=== PATIENT | female | born 1970 | race Two or more races ===

== ENCOUNTER 2022-05-14 09:25 | Emergency (ER) | payer MEDICAID ==
[~2022-05-14] VITALS: Ht 160 cm; Wt 65.8 kg
[~2022-05-14 09:25] MED LIST: NO HOME MEDS
--- NOTE | 2022-05-14 09:37 | NUR ---
TO ER BED 3, C/O ABDOMINAL PAIN X 2 MONTHS C/O ANXIETY, AAOX3, BREATHING EVEN AND NON LABORED, CONNECTED TO MONITOR, AWAITING MD ORDERS
--- NOTE | 2022-05-14 09:44 | NUR ---
URINE COLLECTED AND SENT TO LAB
[2022-05-14] MEDS ORDERED: ONDANSETRON HCL/PF 4 MG/2 ML VIAL ONE (09:56)
[2022-05-14] MEDS ORDERED: FAMOTIDINE/PF INJ 20 MG/2 ML VIAL IV ONE ×2 (09:56→10:00)
[2022-05-14] MEDS ORDERED: MORPHINE SULFATE INJ 4 MG/ML DISP.SYRIN ONE (09:56)
[2022-05-14] MEDS ORDERED: MORPHINE SULFATE INJ 2 MG/ML DISP.SYRIN IV ONE (10:00)
[2022-05-14] MEDS ORDERED: ONDANSETRON HCL/PF 4 MG/2 ML VIAL IVP ONE (10:00)
[2022-05-14] MEDS ORDERED: IV NS 0.9% 1,000 ML BAG IV ONE (10:00)
--- NOTE | 2022-05-14 10:03 | NUR ---
TAKEN TO CT VIA SCAR
[2022-05-14 10:31] LABS: BASOPHILS % (AUTO) 0.3 % (0.0-2.0); EOSINOPHILS % (AUTO) 0.4 % (0.0-6.0); HEMATOCRIT 43 % (33-45); HEMOGLOBIN 14.6 g/dL (11.5-14.8); LYMPHOCYTES # (AUTO) 0.7 K/uL (0.8-4.8); LYMPHOCYTES % (AUTO) 9.5 % (20.0-44.0); MEAN CORPUSCULAR HGB CONC 34 g/dl (31.0-36.0); MEAN CORPUSCULAR VOLUME 85 fL (82-100); MONOCYTES # (AUTO) 0.5 K/uL (0.1-1.30); MONOCYTES % (AUTO) 7.7 % (2.0-12.0); NEUTROPHILS # (AUTO) 5.6 K/uL (1.8-8.9); NEUTROPHILS % (AUTO) 82.1 % (43.0-81.0); PLATELET COUNT (AUTO) 329 K/uL (150-450); RED BLOOD CELL COUNT(AUTO) 5.09 MIL/uL (4.0-5.2); WHITE BLOOD COUNT (AUTO) 6.8 K/uL (4.3-11.0)
[2022-05-14 10:54] LABS: CALCIUM, SERUM 9.8 mg/dL (8.5-10.1); CREATININE 0.8 mg/dL (0.6-1.3); POTASSIUM 3.7 mmol/L (3.5-5.1)
[2022-05-14 10:59] LABS: ALBUMIN 4.1 g/dL (3.4-5.0); BILIRUBIN,DIRECT 0.2 mg/dL (0.0-0.2); BILIRUBIN,TOTAL 0.5 mg/dL (0.2-1.0); TOTAL PROTEIN, SERUM 8.1 g/dL (6.4-8.2)
[2022-05-14 11:57] LABS: BILIRUBIN,URINE 1+ (NEGATIVE); COLOR,URINE YELLOW (YELLOW); LEUKOCYTE ESTERASE ,URINE 2+ (NEGATIVE); NITRITE, URINE NEGATIVE (NEGATIVE); PROTEIN,URINE NEGATIVE (NEGATIVE); UGLUCOSE NEGATIVE (NEGATIVE)
[2022-05-14 12:53] LABS: BACTERIA,URINE Few /HPF (None Seen); RBC,URINE NONE SEEN /HPF (0-2)
[2022-05-14 12:54] LABS: SQUAMOUS EPITHELIAL CELL,UR Few /HPF (None Seen)
[2022-05-14] MEDS ORDERED: ONDA4TAB5 PO (12:59)
[2022-05-14] MEDS ORDERED: NITR100C PO (12:59)
[2022-05-14] MEDS ORDERED: FAMO20TA8 PO (12:59)
--- NOTE | 2022-05-14 13:20 | NUR ---
IV removed. Catheter intact and site benign. Pressure and 4x4 applied to site. No bleeding noted. Patient discharged to home in stable condition. Written and verbal after care instructions given. Patient verbalizes understanding of instruction.
[2022-05-14 13:21] VITALS: BP 130/88
== END 2022-05-14 13:21 | disposition home or self-care (01) ==
LOC: ER 09:27
DX: N39.0 Urinary tract infection, site not specified (principal); R10.13 Epigastric pain; Z79.899 Other long term (current) drug therapy
CPT/HCPCS: 99284; 74176; 96374; 96375; 96361; 85025; 80048; 87086; 83690; 80076; 81001; 36415; J2270; J3490; J2405; J7030

== ENCOUNTER 2022-07-28 17:49 | Inpatient (IN) | payer MEDICAID ==
[~2022-07-28] VITALS: Ht 160 cm; Wt 62.1 kg
[~2022-07-28 17:49] MED LIST changes: +FAMO20TA8 PO; +NITR100C PO; +ONDA4TAB5 PO
--- NOTE | 2022-07-28 18:11 | NUR ---
DR CARMONA AT BEDSIDE
[2022-07-28] MEDS ORDERED: MORPHINE SULFATE INJ 2 MG/ML DISP.SYRIN ONE (18:20)
[2022-07-28] MEDS ORDERED: MORPHINE SULFATE INJ 2 MG/ML DISP.SYRIN IV ONE (18:30)
[2022-07-28] MEDS ORDERED: IV NS 0.9% 1,000 ML BAG IV ONE (18:30)
--- NOTE | 2022-07-28 18:46 | NUR ---
SHOWER MAID AT BEDSIDE
--- NOTE | 2022-07-28 18:48 | NUR ---
WHEELED OUT VIA RNEY FOR CT SCAN
[2022-07-28 18:59] LABS: CALCIUM, SERUM 9.6 mg/dL (8.5-10.1); CARBON DIOXIDE 31 mmol/L (21-32); CHLORIDE 104 mmol/L (98-107); CREATININE 0.8 mg/dL (0.6-1.3); GLUCOSE 119 mg/dL (74-106); POTASSIUM 3.2 mmol/L (3.5-5.1); SODIUM SERUM 141 mmol/L (136-145); UREA NITROGEN, BLOOD 13 mg/dL (7-18)
[2022-07-28 19:08] LABS: ALANINE AMINOTRANSFERASE 75 U/L (12-78); ALKALINE PHOSPHATASE 133 U/L (46-116); ASPARTATE AMINOTRANSFERASE 107 U/L (15-37); BILIRUBIN,DIRECT 0.2 mg/dL (0.0-0.2); BILIRUBIN,TOTAL 0.3 mg/dL (0.2-1.0); TOTAL PROTEIN, SERUM 7.9 g/dL (6.4-8.2)
[2022-07-28 19:12] LABS: LIPASE 2255 U/L (73-393)
[2022-07-28] MEDS ORDERED: POTASSIUM CL. PREMIX PERIPHER. 50 ML IV SCH (19:30)
--- NOTE | 2022-07-28 19:33 | NUR ---
endorsement given to Maria Teresa HAYDEN for MEGAN
[2022-07-28 19:55] LABS: BASOPHILS % (AUTO) 0.3 % (0.0-2.0); EOSINOPHILS % (AUTO) 0.9 % (0.0-6.0); HEMATOCRIT 43 % (33-45); HEMOGLOBIN 14.1 g/dL (11.5-14.8); LYMPHOCYTES # (AUTO) 2.5 K/uL (0.8-4.8); LYMPHOCYTES % (AUTO) 30.3 % (20.0-44.0); MEAN CORPUSCULAR HGB CONC 33 g/dl (31.0-36.0); MEAN CORPUSCULAR VOLUME 87 fL (82-100); MONOCYTES # (AUTO) 0.5 K/uL (0.1-1.30); MONOCYTES % (AUTO) 6.5 % (2.0-12.0); NEUTROPHILS # (AUTO) 5.2 K/uL (1.8-8.9); PLATELET COUNT (AUTO) 350 K/uL (150-450); RED BLOOD CELL COUNT(AUTO) 4.91 MIL/uL (4.0-5.2); WHITE BLOOD COUNT (AUTO) 8.3 K/uL (4.3-11.0)
--- NOTE | 2022-07-28 20:03 | NUR ---
URINE SPECIMEN SENT TO LAB
--- NOTE | 2022-07-28 20:03 | NUR ---
COVID SWAB DONE AND SENT TO LAB
--- NOTE | 2022-07-28 20:50 | NUR ---
RECEIVED THIS PATIENT AAOX4. ABLE TO MAKE NEEDS KNOW. CAME EARLIER WITHCC OF LUQ ABDL PAIN. NO PAIN UPON ASSESSMENT. PATIENT HAS IV DAVID ON LEFT AC G18. ATTACHED TO MONITOR. VITALS CHECKED.
[2022-07-28] MEDS ORDERED: ONDANSETRON HCL/PF 4 MG/2 ML VIAL IVP PRN (21:30)
[2022-07-28] MEDS ORDERED: ACETAMINOPHEN 325 MG TABLET PO PRN (21:30)
[2022-07-28] MEDS ORDERED: MAG HYDROX/AL HYDROX/SIMETH 30 ML UDC PO PRN (21:30)
[2022-07-28] MEDS ORDERED: MAGNESIUM HYDROXIDE 30 ML UDC PO PRN (21:30)
[2022-07-28] MEDS ORDERED: TEMAZEPAM 15 MG CAPSULE PO PRN (21:30)
[2022-07-28] MEDS ORDERED: Z GUARD REMEDY 4 OZ OINT TP PRN (21:30)
--- NOTE | 2022-07-28 22:00 | NUR ---
REPORT JACKELYN SEQUEIRA MEGAN
--- NOTE | 2022-07-28 22:43 | NUR ---
PT BEING TRANSPORTED TO UNIT ON [facility] WITH EMT AT BEDSIDE. PT IS IN STABLE CONDITION FOR TRANSPORT.
[2022-07-28 22:50] VITALS: BP 145/72
[2022-07-28] MEDS: ENOXAPARIN SODIUM 40 MG/0.4 ML DISP.SYRIN SQ SCH (23:00)
--- NOTE | 2022-07-28 23:10 | NUR ---
MS RN ADMITTING NOTE PATIENT [facility]SF[facility] AT 2250[facility], PATIENT IS ALERT AND ORIENTED X 4, GEORGIAN SPEAKING BUT CAN UNDERSTAND LITTLE DOMINICAN; VITAL SIGNS TAKEN FOLLOWS 145/73, HR 89 BPM, RR 18, TEMP 97.7, 98% O2 SAT; ORIENTED TO STAFF AND ROOM; PATIENT'S BELONGINGS ACCOUNTED FOR; WITH IV ACCESS ON LAC G18 RUNNING WITH NORMAL SALINE AND POTASSIUM IV; ENCOURAGED VERBALIZATION OF NEEDS; SAFETY PRECAUTIONS IMPLEMENTED, BED IN LOW POSITION, LOCKED, SIDE RAILS UP X 3, CALL LIGHT WITHIN EASY REACH; WILL CONTINUE TO MONITOR THROUGHOUT SHIFT
[2022-07-29] MEDS: MORPHINE SULFATE INJ 2 MG/ML DISP.SYRIN IV PRN ×3 (00:59→17:07)
--- NOTE | 2022-07-29 01:30 | NUR ---
MS RN NOTE PATIENT COMPLAINED OF ABDOMINAL PAIN WITH A PAIN SCORE OF 8/10, ADMINISTERED MORPHINE IV ORDERED AT 0059H, PATIENT VERBALIZED DECREASE IN PAIN, TOLERATED WELL
[2022-07-29] MEDS: IV NS 0.9% 1,000 ML IV PRN ×2 (03:48→18:29)
[2022-07-29 05:46] LABS: BASOPHILS % (AUTO) 0.1 % (0.0-2.0); EOSINOPHILS % (AUTO) 0.4 % (0.0-6.0); HEMATOCRIT 41 % (33-45); HEMOGLOBIN 13.6 g/dL (11.5-14.8); LYMPHOCYTES # (AUTO) 0.8 K/uL (0.8-4.8); LYMPHOCYTES % (AUTO) 10.1 % (20.0-44.0); MEAN CORPUSCULAR HGB CONC 33 g/dl (31.0-36.0); MEAN CORPUSCULAR VOLUME 88 fL (82-100); MONOCYTES # (AUTO) 0.6 K/uL (0.1-1.30); MONOCYTES % (AUTO) 7.1 % (2.0-12.0); NEUTROPHILS # (AUTO) 6.8 K/uL (1.8-8.9); NEUTROPHILS % (AUTO) 82.3 % (43.0-81.0); PLATELET COUNT (AUTO) 273 K/uL (150-450); RED BLOOD CELL COUNT(AUTO) 4.69 MIL/uL (4.0-5.2); WHITE BLOOD COUNT (AUTO) 8.3 K/uL (4.3-11.0)
[2022-07-29 06:03] LABS: CALCIUM, SERUM 8.7 mg/dL (8.5-10.1); CREATININE 0.7 mg/dL (0.6-1.3); MAGNESIUM 2.1 mg/dL (1.8-2.4); PHOSPHORUS 4.2 mg/dL (2.5-4.9)
--- NOTE | 2022-07-29 06:39 | NUR ---
MS RN CLOSING NOTE PATIENT IS ALERT AND ORIENTED X 4, NEPALI SPEAKING BUT CAN UNDERSTAND LITTLE BRAZILIAN; ON ROOM AIR, BREATHING EVENLY AND TOLERATING WELL, NO RESPIRATORY DISTRESS NOTED; WITH IV ACCESS ON LAC G18 RUNNING WITH NORMAL SALINE AT 125 ML/HR, INFUSING WELL; PATIENT'S NEEDS ATTENDED; ADMINISTERED MEDICATIONS PRESCRIBED; MONITORED ACCORDINGLY; SAFETY PRECAUTIONS IMPLEMENTED, BED IN LOW POSITION, LOCKED, SIDE RAILS UP X 3, CALL LIGHT WITHIN EASY REACH; WILL ENDORSE TO AM NURSE FOR MEGAN.
--- NOTE | 2022-07-29 07:31 | NUR ---
MS RN OPENING NOTE Patient observed to be awake, alert, oriented x 4. Patient states she feels better this morning than yesterday, denying nausea, denying any pain, and showing no signs of distress breathing comfortably on room air. Patient has a patent, intact PIV ,# 18 gauge, infusing NS @ 125mLs/hr to her left arm antecubital space. Saftey protocals in place: bed in lowest positon; bed brakes locked on; bed alarm on; bed siderails up x 2; and call adams/light within patient's reach. Will continue to care for and monitor per hospitalist provider's POC.
[2022-07-29 08:00] VITALS: BP 116/74
[2022-07-29] MEDS ORDERED: OMEP40CA21 PO (08:44)
[2022-07-29] MEDS ORDERED: PANTOPRAZOLE 40 MG VIAL IV SCH (09:00)
[2022-07-29 16:00] VITALS: BP 115/64
--- NOTE | 2022-07-29 19:03 | NUR ---
MS RN CLOSING NOTE Patient resting comfortably in bed while patient's visits her. patient is alert and oriented x 4 with mild inflammatory pain across her abdomen 2/10 after getting morphine 4 mg IV for 7/10 pain earlier at 17:07 hours. Vital signs stable. All scheduled medications given. Patient has intact, patent, # 18 gauge PIV to left AC, infusing well NS @125 mLs/hr. All safety protocals maintained. Will endorse to bench assembler RN for MEGAN.
--- NOTE | 2022-07-29 19:15 | NUR ---
MS RN NOTES RECEIVED ON BED,ON SITTING POSITION,FAMILY MEMBERS AT BEDSIDE,COMMENTED SLIGHT ABDOMINAL PAIN, PRESENT IVF NS AT 125ML/HR RATE INFUSING WELL ON LEFT AC SALINE LOCK VIA IV PUMP,SITE PATENT.NO S/S OF INFILTRATION NOTED.ON CLEAR LIQUIDS,CALL LIGHT IN REACH,NEEDS ANTICIPATED.
[2022-07-29 20:00] VITALS: BP 130/76
[2022-07-29] MEDS: ENOXAPARIN SODIUM 40 MG/0.4 ML DISP.SYRIN SQ SCH (20:14)
[2022-07-30] MEDS: IV NS 0.9% 1,000 ML IV PRN ×2 (02:52→11:29)
[2022-07-30] MEDS: MORPHINE SULFATE INJ 2 MG/ML DISP.SYRIN IV PRN ×3 (03:05→20:33)
--- NOTE | 2022-07-30 03:05 | NUR ---
MS RN NOTES AWAKE.C/O ABDOMINAL PAIN 8/10 ON PAIN SCALE,MORPHINE 4MG IV GIVEN ORDERED.VITAL SIGNS STABLE.
[2022-07-30 06:19] LABS: BASOPHILS % (AUTO) 0.4 % (0.0-2.0); EOSINOPHILS % (AUTO) 1.8 % (0.0-6.0); HEMATOCRIT 38 % (33-45); HEMOGLOBIN 12.7 g/dL (11.5-14.8); LYMPHOCYTES % (AUTO) 18.2 % (20.0-44.0); MEAN CORPUSCULAR HGB CONC 33 g/dl (31.0-36.0); MEAN CORPUSCULAR VOLUME 87 fL (82-100); MONOCYTES # (AUTO) 0.5 K/uL (0.1-1.30); MONOCYTES % (AUTO) 8.6 % (2.0-12.0); NEUTROPHILS # (AUTO) 3.9 K/uL (1.8-8.9); PLATELET COUNT (AUTO) 264 K/uL (150-450); RED BLOOD CELL COUNT(AUTO) 4.38 MIL/uL (4.0-5.2); WHITE BLOOD COUNT (AUTO) 5.4 K/uL (4.3-11.0)
[2022-07-30 06:21] LABS: CALCIUM, SERUM 8.6 mg/dL (8.5-10.1); CREATININE 0.6 mg/dL (0.6-1.3); MAGNESIUM 2.1 mg/dL (1.8-2.4); PHOSPHORUS 3.8 mg/dL (2.5-4.9); POTASSIUM 3.6 mmol/L (3.5-5.1)
--- NOTE | 2022-07-30 07:42 | NUR ---
MS RN OPENING NOTE Patient observed to be awake, alert, oriented x 4. Patient states she feels better this morning than yesterday, denying nausea, denying any pain, and showing no signs of distress breathing comfortably on room air. Patient has a patent, intact PIV ,# 18 gauge, infusing NS @ 125mLs/hr to her left arm antecubital space. Patient up OOB to bathroom with steady gait, no c/o dizziness nor unbearable pain. Lipase level is WNL, no longer abnormally high. Safety protocols in place: bed in lowest position; bed brakes locked on; bed alarm on; bed side rails up x 2; and call adams/light within patient's reach. Will continue to care for and monitor per hospitalist provider's POC.
[2022-07-30 08:00] VITALS: BP 122/75
[2022-07-30] MEDS: PANTOPRAZOLE 40 MG/PACK PACK PO SCH (10:03)
[2022-07-30 16:00] VITALS: BP 130/72
[2022-07-30] MEDS: LORAZEPAM INJ 2 MG/ML VIAL IV PRN (18:42)
--- NOTE | 2022-07-30 18:51 | NUR ---
MS RN CLOSING NOTE Patient uncomfortable with pain in bed c/o severe abdominal pain, but next dose of morphine IV not due for more than another hour. Gave patient ativan 1 mg IV to help calm patient and possibly potentiate the morphine's effectiveness once given later in an hour. Patient did report slight relief, but still in pain. Patient is alert and oriented x 4 with inflammatory pain across her abdomen /. Vital signs stable. All scheduled medications given. Patient has intact, patent, # 18 gauge PIV to left AC, infusing well NS @125 mLs/hr. All safety protocols maintained. Will endorse to servomechanism assembler RN for MEGAN.
--- NOTE | 2022-07-30 19:15 | NUR ---
MS RN OPENING NOTE RECEIVED PT IN BED, AWAKE AT THIS TIME. A/O X4, GERMAN SPEAKING WITH SOME KHMER, ABLE TO MAKE NEEDS KNOWN. ON RA WITH NO SOB OR S/S OF ACUTE DISTRESS. C/O ABDOMINAL PAIN AT THIS TIME, WILL ADMINISTER PAIN MED WHEN DUE. IV ACCESS LAC #20G PATENT AND INTACT, FLUSHING WELL, RUNNING 0.9% NS @ 125 ML/HR. SAFETY PRECAUTIONS IN PLACE: BED LOCKED AND IN LOWEST POSITION, SIDE RAILS UP X2, CALL LIGHT AND TRAY TABLE WITHIN REACH. WILL CONTINUE TO MONITOR AND ASSIST.
[2022-07-30 20:00] VITALS: BP_SYST 120; BP_DIAS 61; BP_DIAS 64
[2022-07-30] MEDS: ENOXAPARIN SODIUM 40 MG/0.4 ML DISP.SYRIN SQ SCH (20:35)
[2022-07-31] MEDS: MORPHINE SULFATE INJ 2 MG/ML DISP.SYRIN IV PRN ×3 (05:31→15:55)
[2022-07-31] MEDS: IV NS 0.9% 1,000 ML IV PRN ×2 (05:38→14:11)
[2022-07-31 05:48] LABS: BASOPHILS % (AUTO) 0.4 % (0.0-2.0); EOSINOPHILS % (AUTO) 2.8 % (0.0-6.0); HEMATOCRIT 39 % (33-45); LYMPHOCYTES # (AUTO) 1.2 K/uL (0.8-4.8); LYMPHOCYTES % (AUTO) 21.2 % (20.0-44.0); MEAN CORPUSCULAR HGB CONC 33 g/dl (31.0-36.0); MEAN CORPUSCULAR VOLUME 87 fL (82-100); MONOCYTES # (AUTO) 0.5 K/uL (0.1-1.30); MONOCYTES % (AUTO) 8.4 % (2.0-12.0); NEUTROPHILS # (AUTO) 3.9 K/uL (1.8-8.9); NEUTROPHILS % (AUTO) 67.2 % (43.0-81.0); PLATELET COUNT (AUTO) 263 K/uL (150-450); RED BLOOD CELL COUNT(AUTO) 4.51 MIL/uL (4.0-5.2); WHITE BLOOD COUNT (AUTO) 5.7 K/uL (4.3-11.0)
[2022-07-31 06:06] LABS: CALCIUM, SERUM 8.7 mg/dL (8.5-10.1); CREATININE 0.6 mg/dL (0.6-1.3); PHOSPHORUS 3.5 mg/dL (2.5-4.9); POTASSIUM 3.4 mmol/L (3.5-5.1)
--- NOTE | 2022-07-31 07:15 | NUR ---
MS RN CLOSING NOTE PT IN BED RESTING IN BED AT THIS TIME. A/O X4, SERBIAN SPEAKING WITH SOME MAORI, ABLE TO MAKE NEEDS KNOWN. STABLE ON RA WITH NO SOB OR S/S OF ACUTE DISTRESS. C/O ABDOMINAL PAIN AT THIS TIME, WILL ADMINISTER PAIN MED WHEN DUE. IV ACCESS LAC #20G PATENT AND INTACT, FLUSHING WELL, RUNNING 0.9% NS @ 125 ML/HR. ALL CARE PROVIDED AND MEDS TOLERATED WELL. SAFETY PRECAUTIONS MAINTAINED: BED LOCKED AND IN LOWEST POSITION, SIDE RAILS UP X2, CALL LIGHT AND TRAY TABLE WITHIN REACH. WILL ENDORSE MEGAN TO DAY SHIFT NURSE.
--- NOTE | 2022-07-31 07:16 | NUR ---
MS RN OPENING NOTE RECEIVED PT IN BED RESTING IN BED AT THIS TIME. A/O X4, ABLE TO MAKE NEEDS KNOWN. STABLE ON RA WITH NO SOB OR S/S OF ACUTE DISTRESS. C/O ABDOMINAL DISCOMFORT. WITH IV ACCESS LAC #20G WITH IVF OF NS RUNNING AT 125ML/HR INFUSING WELL. SAFETY PRECAUTIONS MAINTAINED: BED LOCKED AND IN LOWEST POSITION, SIDE RAILS UP X2, CALL LIGHT AND TRAY TABLE WITHIN REACH. WILL CONTINUE WITH PLAN OF CARE.
[2022-07-31 08:53] VITALS: BP 112/53
[2022-07-31] MEDS: PANTOPRAZOLE 40 MG/PACK PACK PO SCH (08:54)
--- NOTE | 2022-07-31 10:30 | NUR ---
MS RN NOTE COMPLAINING OF ABDOMINAL PAIN, PAIN MEDICATION GIVEN INDICATED. COMFORT MEASURES PROVIDED. HEALTH TEACHING DONE REGARDING PAIN MANAGEMENT.
--- NOTE | 2022-07-31 11:18 | NUR ---
MS RN NOTE SEEN BY HOSPITALIST GARO, IN STABLE CONDITION.
[2022-07-31] MEDS: Potassium Chloride 10 MEQ, LIDOCAINE HCL/PF 1% 1 ML in IV NS 0.9% 50 ML IV SCH ×2 (12:08→13:39)
[2022-07-31] MEDS: POTASSIUM CL. PREMIX PERIPHER. 50 ML IV SCH ×2 (14:53→15:54)
[2022-07-31 16:00] VITALS: BP 124/57
--- NOTE | 2022-07-31 16:10 | NUR ---
MS RN NOTE COMPLAINING OF ABDOMINAL PAIN, PAIN MEDICATION GIVEN INDICATED. COMFORT MEASURES PROVIDED. HEALTH TEACHING DONE REGARDING DISEASE PROCESS AND MANAGEMENT.
[2022-07-31] MEDS: LORAZEPAM INJ 2 MG/ML VIAL IV PRN (17:44)
--- NOTE | 2022-07-31 17:50 | NUR ---
MS RN NOTE COMPLAINED OF BEING AGITATED. ATIVAN GIVEN ORDERED. IN STABLE CONDITION.
--- NOTE | 2022-07-31 19:00 | NUR ---
MS RN CLOSING NOTE PT IN BED RESTING IN BED AT THIS TIME. A/O X4, ABLE TO MAKE NEEDS KNOWN. STABLE ON RA WITH NO SOB OR S/S OF ACUTE DISTRESS. C/O ABDOMINAL DISCOMFORT. WITH IV ACCESS LAC #20G WITH IVF OF NS RUNNING AT 125ML/HR INFUSING WELL. SAFETY PRECAUTIONS MAINTAINED: BED LOCKED AND IN LOWEST POSITION, SIDE RAILS UP X2, CALL LIGHT AND TRAY TABLE WITHIN REACH. WILL ENDORSE TO NEXT SHIFT FOR CONTINUITY OF CARE.
[2022-07-31 20:00] VITALS: BP 123/77
[2022-07-31] MEDS: ENOXAPARIN SODIUM 40 MG/0.4 ML DISP.SYRIN SQ SCH (20:37)
[2022-08-01] MEDS: LORAZEPAM INJ 2 MG/ML VIAL IV PRN (04:08)
[2022-08-01 05:57] LABS: BASOPHILS % (AUTO) 0.4 % (0.0-2.0); EOSINOPHILS % (AUTO) 2.9 % (0.0-6.0); HEMATOCRIT 39 % (33-45); LYMPHOCYTES % (AUTO) 18.3 % (20.0-44.0); MEAN CORPUSCULAR HGB CONC 33 g/dl (31.0-36.0); MEAN CORPUSCULAR VOLUME 87 fL (82-100); MONOCYTES # (AUTO) 0.4 K/uL (0.1-1.30); MONOCYTES % (AUTO) 7.4 % (2.0-12.0); NEUTROPHILS # (AUTO) 3.8 K/uL (1.8-8.9); PLATELET COUNT (AUTO) 277 K/uL (150-450); RED BLOOD CELL COUNT(AUTO) 4.54 MIL/uL (4.0-5.2); WHITE BLOOD COUNT (AUTO) 5.3 K/uL (4.3-11.0)
[2022-08-01 06:27] LABS: CREATININE 0.6 mg/dL (0.6-1.3); MAGNESIUM 1.9 mg/dL (1.8-2.4); PHOSPHORUS 3.7 mg/dL (2.5-4.9); POTASSIUM 3.3 mmol/L (3.5-5.1)
--- NOTE | 2022-08-01 07:00 | NUR ---
PT RECEIVED FROM INCOMING NURSE AWAKE AND ALERT. VITAL SIGNS STABLE. PAIN MEDS GIVEN. PATIENT SLEPT WELL THROUGHOUT NIGHT. NO ACUTE DISTRESS NOTED.
--- NOTE | 2022-08-01 07:27 | NUR ---
MS RN OPENING NOTE RECEIVED PT AWAKE AND RESTING IN BED. PT IS A/O X4, VINCENTIAN SPEAKING. PT IS ABLE TO MAKE NEEDS KNOWN. PT IS ON ROOM AIR, TOLERATING WELL. NO SOB NOTED. NOT IN ANY SIGN OF RESPIRATORY DISTRESS. IV ACCESS ON LAC G#20 , INTACT AND PATENT WITH NS INFUSING AT 125ML/HR. SAFETY MEASURES IN PLACE: BED IN LOWEST AND LOCKED POSITION, SIDE RAILS UPX2, AND CALL LIGHT WITHIN REACH. WILL CONTINUE TO MONITOR PT.
--- NOTE | 2022-08-01 08:52 | NUR ---
RN NOTE PT SEEN BY DR. MCDERMOTT WITH ORDERS TO DC NPO ORDER AND CHANGE TO CLEAR LIQUID DIET AND ADVANCE DIET TOLERATED. ORDERS CARRIED OUT.
[2022-08-01] MEDS: PANTOPRAZOLE 40 MG/PACK PACK PO SCH (08:55)
[2022-08-01 08:59] VITALS: BP 111/60
[2022-08-01] MEDS ORDERED: POTASSIUM CHLORIDE 20 MEQ POWDER PACKET PO SCH (10:30)
[2022-08-01] MEDS: MORPHINE SULFATE INJ 2 MG/ML DISP.SYRIN IV PRN ×3 (10:53→21:29)
--- NOTE | 2022-08-01 10:55 | NUR ---
RN NOTE PT C/O UPPER ABDOMEN PAIN WITH PAIN SCALE LEVEL OF 8/10. MORPHINE 4MG IVP ADMINISTERED ORDERED Q4HRS PRN FOR SEVERE PAIN. WILL MONITOR AND REASSESS PT.
[2022-08-01] MEDS: IV NS 0.9% 1,000 ML IV PRN (13:13)
[2022-08-01 16:00] VITALS: BP 112/60
[2022-08-01] MEDS: SUCRALFATE 1 G TABLET PO SCH ×2 (18:09→21:26)
--- NOTE | 2022-08-01 19:50 | NUR ---
MS RN CLOSING NOTE PT AWAKE AND RESTING IN BED. PT IS A/O X4, SLOVAK SPEAKING. PT IS ABLE TO MAKE NEEDS KNOWN. PT IS ON ROOM AIR, TOLERATING WELL. NO SOB NOTED. NOT IN ANY SIGN OF RESPIRATORY DISTRESS. IV ACCESS ON LAC G#20 , INTACT AND PATENT WITH NS INFUSING AT 125ML/HR. ALL NEEDS ATTENDED. KEPT CLEAN AND COMFORTABLE AT ALL TIMES. SAFETY MEASURES IN PLACE: BED IN LOWEST AND LOCKED POSITION, SIDE RAILS UPX2, AND CALL LIGHT WITHIN REACH. ENDORSED TO SCHOOL BUS DRIVER/TEACHER ASSISTANT NURSE FOR MEGAN.
[2022-08-01 20:29] VITALS: BP 134/68
[2022-08-01] MEDS: ENOXAPARIN SODIUM 40 MG/0.4 ML DISP.SYRIN SQ SCH (21:28)
[2022-08-02] MEDS: MORPHINE SULFATE INJ 2 MG/ML DISP.SYRIN IV PRN ×2 (05:49→10:56)
[2022-08-02 06:11] LABS: CALCIUM, SERUM 9.2 mg/dL (8.5-10.1); CREATININE 0.6 mg/dL (0.6-1.3); POTASSIUM 3.6 mmol/L (3.5-5.1)
[2022-08-02] MEDS: IV NS 0.9% 1,000 ML IV PRN (06:23)
--- NOTE | 2022-08-02 07:19 | NUR ---
REPORT GIVEN TO INCOMING NURSE. PATIENT STABLE. NO ACUTE DISTRESS NOTED. PATIENT RESTING COMFORTABLY IN BED.
--- NOTE | 2022-08-02 07:26 | NUR ---
MS RN OPENING NOTE RECEIVED PT AWAKE AND RESTING IN BED. PT IS A/O X4, SYRIAN SPEAKING. PT IS ABLE TO MAKE NEEDS KNOWN. PT IS ON ROOM AIR, TOLERATING WELL. NO SOB NOTED. NOT IN ANY SIGN OF RESPIRATORY DISTRESS. IV ACCESS ON LAC G#20 , INTACT AND PATENT WITH NS INFUSING AT 125ML/HR. SAFETY MEASURES IN PLACE: BED IN LOWEST AND LOCKED POSITION, SIDE RAILS UPX2, AND CALL LIGHT WITHIN REACH. WILL CONTINUE TO MONITOR PT.
[2022-08-02] MEDS: SUCRALFATE 1 G TABLET PO SCH ×2 (07:57→12:23)
[2022-08-02 08:00] VITALS: BP 112/70
[2022-08-02] MEDS: PANTOPRAZOLE 40 MG/PACK PACK PO SCH (09:43)
[2022-08-02] MEDS ORDERED: PANT40SU2 PO (11:48)
[2022-08-02] MEDS ORDERED: SUCR1TAB31 PO (11:48)
[2022-08-02] MEDS: LORAZEPAM INJ 2 MG/ML VIAL IV PRN (14:04)
--- NOTE | 2022-08-02 14:06 | NUR ---
RN NOTE PT C/O FEELING VERY ANXIOUS AND REQUESTED FOR MEDICATION THAT WILL HELP HER FEEL CALM. ATIVAN 1MG IVP ADMINISTERED ORDERED Q6HR PRN FOR ANXIETY. PARTIAL DOSE WASTED AND WAS WITNESSED BY JACKELYN OSCAR. WILL MONITOR AND REASSESS PT.
--- NOTE | 2022-08-02 15:25 | NUR ---
REHABILITATION WORKER NOTE PT DISCHARGED TO HOME IN STABLE CONDITION. PT A/O X4, URUGUAYAN SPEAKING. ASPHALT SCREED OPERATOR WAS AT BEDSIDE. PT ABLE TO MAKE NEEDS KNOWN. PT IS ON ROOM AIR, TOLERATING WELL WITH SPO2 AT 97%. NO SOB NOTED. NOT IN ANY SIGN OF RESPIRATORY DISTRESS. VITAL SIGNS TAKEN, STABLE, AND RECORDED. PT'S SKIN REMAINS INTACT WITH NO SKIN ISSUES NOTED. ALL BELONGINGS ACCOUNTED FOR. DISCHARGED INSTRUCTIONS AND HEALTH TEACHINGS EXPLAINED TO THE PT AND PT VERBALIZED UNDERSTANDING. IV ACCESS ON LAC G#20 REMOVED WITH NO ACTIVE BLEEDING NOTED. DRY PRESSURE DRESSING APPLIED AT SITE. WRISTBAND REMOVED. PT LEFT THE UNIT AT 1515 VIA WHEELCHAIR ACCOMPANIED BY THE MAYUR HARTMAN. PT WAS PICKED UP BY SISTER VIA PRIVATE CAR. MD AND CHARGED NURSE AWARE OF DISCHARGED.
[2022-08-09] MEDS ORDERED: CELE100C PO (10:01)
[2022-08-09] MEDS ORDERED: Hydrocodone/Apap 5/325MG PO (10:01)
[2022-08-09] MEDS ORDERED: GABA300C PO (10:01)
[2022-08-09] MEDS ORDERED: AMOX-430 PO (10:01)
[2022-08-09] MEDS ORDERED: PANT40TA49 PO (10:01)
[2022-08-09] MEDS ORDERED: ACET325T53 PO (10:01)
== END 2022-08-02 15:15 | disposition home or self-care (01) | DRG 282 ==
LOC: ER 18:00 → MED 22:14
PROVIDERS: ADMIT Nurse Practitioner Acute Care; ATTEND Internal Medicine
DX: K85.90 Acute pancreatitis without necrosis or infection, unspecified (principal); Z20.822 Contact with and (suspected) exposure to COVID-19; Z87.440 Personal history of urinary (tract) infections; Z79.899 Other long term (current) drug therapy; Z98.890 Other specified postprocedural states; Z87.19 Personal history of other diseases of the digestive system
CPT/HCPCS: 36415; 71045-TC; 80048-TC; 80076-TC; 83690-TC; 83735-TC; 84100-TC; 84484-TC; 85025-TC; 87081-TC; A4223; C9113; C9803; G0378; J1650; J2060; J2270; J3480; J3490; J7030; J7042; J7050

== ENCOUNTER 2022-08-04 09:39 | Inpatient (IN) | payer MEDICAID ==
[~2022-08-04] VITALS: Ht 162.6 cm; Wt 61.2 kg
[~2022-08-04 09:39] MED LIST changes: -FAMO20TA8 PO; -NITR100C PO; -NO HOME MEDS; +OMEP40CA21 PO; -ONDA4TAB5 PO; +PANT40SU2 PO; +SUCR1TAB31 PO
--- NOTE | 2022-08-04 09:55 | NUR ---
RECEIVED PT 52 YRS FEMALE WALKING IN FROM HOME C/O ABDOMIANL PAIN 8/10 FOR 2 DAYS ABDOMIN SOFT TENDER TO TOUCH
[2022-08-04] MEDS ORDERED: IV NS 0.9% 1,000 ML BAG IV ONE (10:00)
[2022-08-04] MEDS ORDERED: ONDANSETRON HCL/PF 4 MG/2 ML VIAL IVP ONE (10:00)
--- NOTE | 2022-08-04 10:00 | NUR ---
INSERTED ANG CATHETER G 18 ON RT AC BLOOD DROW AND SENT TO LAB UA SENT TO LAB
[2022-08-04 10:26] LABS: BASOPHILS % (AUTO) 0.3 % (0.0-2.0); EOSINOPHILS % (AUTO) 0.2 % (0.0-6.0); HEMATOCRIT 46 % (33-45); LYMPHOCYTES # (AUTO) 0.7 K/uL (0.8-4.8); LYMPHOCYTES % (AUTO) 10.8 % (20.0-44.0); MEAN CORPUSCULAR HGB CONC 33 g/dl (31.0-36.0); MEAN CORPUSCULAR VOLUME 87 fL (82-100); MONOCYTES # (AUTO) 0.4 K/uL (0.1-1.30); MONOCYTES % (AUTO) 5.5 % (2.0-12.0); NEUTROPHILS # (AUTO) 5.3 K/uL (1.8-8.9); NEUTROPHILS % (AUTO) 83.2 % (43.0-81.0); PLATELET COUNT (AUTO) 359 K/uL (150-450); RED BLOOD CELL COUNT(AUTO) 5.31 MIL/uL (4.0-5.2); WHITE BLOOD COUNT (AUTO) 6.4 K/uL (4.3-11.0)
--- NOTE | 2022-08-04 10:30 | NUR ---
ABDOMINL US AT BED SIDE
[2022-08-04 10:36] LABS: BILIRUBIN,URINE NEGATIVE (NEGATIVE); COLOR,URINE YELLOW (YELLOW); LEUKOCYTE ESTERASE ,URINE NEGATIVE (NEGATIVE); NITRITE, URINE NEGATIVE (NEGATIVE); PROTEIN,URINE NEGATIVE (NEGATIVE); UGLUCOSE NEGATIVE (NEGATIVE); UROBILINOGEN,URINE 0.2 EU/dL (0.2)
[2022-08-04] MEDS ORDERED: ONDANSETRON HCL/PF 4 MG/2 ML VIAL ONE (10:36)
[2022-08-04 10:44] LABS: ALBUMIN 3.7 g/dL (3.4-5.0); BILIRUBIN,DIRECT 0.1 mg/dL (0.0-0.2); BILIRUBIN,TOTAL 0.2 mg/dL (0.2-1.0); CALCIUM, SERUM 9.6 mg/dL (8.5-10.1); CREATININE 0.8 mg/dL (0.6-1.3); POTASSIUM 3.2 mmol/L (3.5-5.1); TOTAL PROTEIN, SERUM 7.9 g/dL (6.4-8.2)
[2022-08-04] MEDS ORDERED: MORPHINE SULFATE INJ 2 MG/ML DISP.SYRIN IV ONE (11:00)
[2022-08-04] MEDS ORDERED: MORPHINE SULFATE INJ 4 MG/ML DISP.SYRIN ONE (11:09)
--- NOTE | 2022-08-04 11:15 | NUR ---
IV INFUSED AND PATENT
--- NOTE | 2022-08-04 11:25 | NUR ---
TERRY SPRINGER SENT TO LAB
[2022-08-04] MEDS ORDERED: PIPERACILLIN /TAZOBACTAM 3.375 G in IV D5W 50 ML IV ONE (12:00)
--- NOTE | 2022-08-04 12:13 | NUR ---
WATING FOR MS BED
--- NOTE | 2022-08-04 12:40 | NUR ---
going to room 117-1
[2022-08-04] MEDS ORDERED: MAG HYDROX/AL HYDROX/SIMETH 30 ML UDC PO PRN (13:00)
[2022-08-04] MEDS ORDERED: MAGNESIUM HYDROXIDE 30 ML UDC PO PRN (13:00)
[2022-08-04] MEDS ORDERED: Z GUARD REMEDY 4 OZ OINT TP PRN (13:00)
[2022-08-04] MEDS ORDERED: ACETAMINOPHEN 325 MG TABLET PO PRN (13:00)
[2022-08-04] MEDS ORDERED: ZOLPIDEM TARTRATE 5 MG TABLET PO PRN (13:00)
--- NOTE | 2022-08-04 13:09 | NUR ---
HAND OFF EL.APRYL HAYDEN TO ROOM 117-1
--- NOTE | 2022-08-04 13:55 | NUR ---
MINUTE CLERK NOTES: RECEIVED REPORT FROM JACKELYN MARTINEZ BY PHONE. PT ARRIVED TO UNIT VIA GURNEY, AMBULATED FROM [facility] TO HOSPITAL BED. PT IS AWAKE, A/O X4, ABLE TO MAKE NEEDS KNOWN, GEORGIAN SPK WITH SOME ST LUCIAN. VITALS IS STABLE, BP= 137/75; HR= 78, TEMP= 98.8, O2 SAT= 98% ON RA. NO S/S OF SOB, BREATHING EVEN AND UNLABORED. REPORTS ABD PAIN AT 9/10, WILL MEDICATE ORDERED. PT SKIN IS INTACT, AMBULATORY WITH STEADY GAIT; BRP. PT ORIENTED TO UNIT AND STAFF, INSTRUCTED ABOUT CALL LIGHT. SAFETY MEASURES IN PLACE, TABLE, CALL LIGHT WITHIN EASY REACH, WILL CONT WITH PLAN OF CARE DURING SHIFT.
[2022-08-04 14:00] VITALS: BP 137/75
[2022-08-04] MEDS: MORPHINE SULFATE INJ 2 MG/ML DISP.SYRIN IV PRN ×3 (14:03→23:06)
[2022-08-04] MEDS: ZOSYN IVPB 3.375 G in IV D5W 50ml IV SCH ×2 (14:11→21:00)
[2022-08-04] MEDS: IV D5/0.45 NACL 1,000 ML IV PRN (14:18)
[2022-08-04 14:45] LABS: ALBUMIN 3.2 g/dL (3.4-5.0); BILIRUBIN,DIRECT 0.1 mg/dL (0.0-0.2); BILIRUBIN,TOTAL 0.2 mg/dL (0.2-1.0)
[2022-08-04] MEDS: POTASSIUM CL. PREMIX PERIPHER. 50 ML IV SCH ×4 (16:14→19:38)
--- NOTE | 2022-08-04 19:13 | NUR ---
MS RN CLOSING NOTES: PT IS ASLEEP, EASILY ROUSED, A/O X4, ABLE TO MAKE NEEDS KNOWN, SETSWANA SPK WITH SOME CHINESE. ON RA, WITH NO S/S OF SOB, BREATHING EVEN AND UNLABORED. PT IS ON NPO STATUS PENDING GI CONSULT. REPORTS ABD PAIN AT 2-3/10 AFTER IV PAIN MGT. IV ACCESS AT R AC#18, RUNNING D5 1/2 NS @ 75ML/HR. KEPT PT COMFORTABLE. SAFETY MEASURES IN PLACE, TABLE, CALL LIGHT WITHIN EASY REACH, WILL ENDORSE TO PM SHIFT.
--- NOTE | 2022-08-04 19:40 | NUR ---
MS RN OPENING NOTE RECEIVED PT AWAKE, RESTING IN BED. PT A/O X4, ABLE TO MAKE NEEDS KNOWN, GEORGIAN SPEAKING WITH SOME MACANESE. ON RA, WITH NO S/S OF SOB, BREATHING EVEN AND UNLABORED. PT IS NPO D/T PENDING GI CONSULT. NO C/O PAIN OR DISCOMFORT AT THIS TIME. IV ACCESS TO RIGHT AC#18, RUNNING D5 1/2 NS @ 75ML/HR. SAFETY MEASURES IN PLACE, BED SIDE TABLE, AND CALL LIGHT WITHIN EASY REACH, SR UP X2, BED IN LOW POSITION. WILL CONTINUE TO MONITOR PT THROUGHOUT SHIFT.
[2022-08-04 21:00] VITALS: BP 123/69
--- NOTE | 2022-08-04 23:05 | NUR ---
RN NOTE PT REPORTS ABDOMINAL PAIN. MORPHINE ADMINISTERED TO PT FOR PAIN.
[2022-08-05] MEDS: ZOSYN IVPB 3.375 G in IV D5W 50ml IV SCH ×4 (02:15→20:00)
[2022-08-05] MEDS: MORPHINE SULFATE INJ 2 MG/ML DISP.SYRIN IV PRN ×4 (04:20→20:12)
--- NOTE | 2022-08-05 04:20 | NUR ---
RN NOTE PT REPORTS ABDOMINAL PAIN. MORPHINE ADMINISTERED TO PT FOR PAIN.
[2022-08-05 05:00] VITALS: BP 103/61
--- NOTE | 2022-08-05 06:51 | NUR ---
MS RN OPENING NOTE LEFT PT SLEEPING IN BED. PT A/O X4, ABLE TO MAKE NEEDS KNOWN, THAI SPEAKING WITH SOME WELSH. ON RA, WITH NO S/S OF SOB, BREATHING EVEN AND UNLABORED. PT IS NPO D/T PENDING GI CONSULT. NO C/O PAIN OR DISCOMFORT AT THIS TIME. IV ACCESS TO RIGHT AC#18, RUNNING D5 1/2 NS @ 75ML/HR. SAFETY MEASURES IN PLACE, BED SIDE TABLE, AND CALL LIGHT WITHIN EASY REACH, SR UP X2, BED IN LOW POSITION. WILL ENDORSE PT TO AM SHIFT NURSE FOR MEGAN.
[2022-08-05 06:55] LABS: BASOPHILS % (AUTO) 0.3 % (0.0-2.0); HEMATOCRIT 41 % (33-45); HEMOGLOBIN 13.5 g/dL (11.5-14.8); LYMPHOCYTES # (AUTO) 1.3 K/uL (0.8-4.8); LYMPHOCYTES % (AUTO) 24.8 % (20.0-44.0); MEAN CORPUSCULAR HGB CONC 33 g/dl (31.0-36.0); MEAN CORPUSCULAR VOLUME 87 fL (82-100); MONOCYTES # (AUTO) 0.5 K/uL (0.1-1.30); MONOCYTES % (AUTO) 8.8 % (2.0-12.0); NEUTROPHILS # (AUTO) 3.3 K/uL (1.8-8.9); NEUTROPHILS % (AUTO) 64.1 % (43.0-81.0); PLATELET COUNT (AUTO) 325 K/uL (150-450); RED BLOOD CELL COUNT(AUTO) 4.75 MIL/uL (4.0-5.2); WHITE BLOOD COUNT (AUTO) 5.2 K/uL (4.3-11.0)
[2022-08-05 07:24] LABS: CALCIUM, SERUM 9.2 mg/dL (8.5-10.1); CREATININE 0.8 mg/dL (0.6-1.3); MAGNESIUM 2.1 mg/dL (1.8-2.4); PHOSPHORUS 4.6 mg/dL (2.5-4.9); POTASSIUM 3.5 mmol/L (3.5-5.1)
[2022-08-05] MEDS: PANTOPRAZOLE 40 MG VIAL IV SCH (08:19)
[2022-08-05] MEDS: IV D5/0.45 NACL 1,000 ML IV PRN (09:56)
--- NOTE | 2022-08-05 10:00 | NUR ---
DR. LOYOLA SAID THAT IT IS LISA TO INCREASE THE MORPHINE DOSE FROM 2 MG TO 4 MG WHEN PATIENT IS IN A LOT OF PAIN. ALSO STATED THAT PATIENT REMAINS NPO
[2022-08-05 13:00] VITALS: BP 106/60
--- NOTE | 2022-08-05 18:55 | NUR ---
RN CLOSING NOTES: PT IS AWAKE IN BED SLEEPS SOMETIMES, BUT EASILY ROUSED, A/O X4, ABLE TO MAKE NEEDS KNOWN, A/OX4 POLISH SPEAKING WITH SOME TRISTANIAN. ON ROOM AIR WITH NO S/S OF SOB, BREATHING EVEN AND UNLABORED. PT IS ON NPO STATUS PENDING GI CONSULT. REPORTS ABD PAIN AT 2-3/10 AFTER IV PAIN MGT MORPHINE 2 MG. IV ACCESS AT R AC#18, RUNNING D5 1/2 NS @75ML/HR. KEPT PT COMFORTABLE. SAFETY MEASURES IN PLACE, TABLE, CALL LIGHT WITHIN EASY REACH, WILL ENDORSE TO PM SHIFT.
[2022-08-05 20:00] VITALS: BP 114/77
[2022-08-06] MEDS: MORPHINE SULFATE INJ 2 MG/ML DISP.SYRIN IV PRN ×3 (00:50→09:27)
[2022-08-06] MEDS: ZOSYN IVPB 3.375 G in IV D5W 50ml IV SCH ×4 (01:20→20:15)
[2022-08-06 04:00] VITALS: BP 129/82
[2022-08-06 06:15] LABS: BASOPHILS % (AUTO) 0.4 % (0.0-2.0); EOSINOPHILS % (AUTO) 1.9 % (0.0-6.0); HEMATOCRIT 43 % (33-45); HEMOGLOBIN 14.4 g/dL (11.5-14.8); LYMPHOCYTES # (AUTO) 1.3 K/uL (0.8-4.8); LYMPHOCYTES % (AUTO) 24.5 % (20.0-44.0); MEAN CORPUSCULAR HGB CONC 34 g/dl (31.0-36.0); MEAN CORPUSCULAR VOLUME 87 fL (82-100); MONOCYTES # (AUTO) 0.5 K/uL (0.1-1.30); NEUTROPHILS # (AUTO) 3.5 K/uL (1.8-8.9); NEUTROPHILS % (AUTO) 64.2 % (43.0-81.0); PLATELET COUNT (AUTO) 362 K/uL (150-450); RED BLOOD CELL COUNT(AUTO) 4.98 MIL/uL (4.0-5.2); WHITE BLOOD COUNT (AUTO) 5.4 K/uL (4.3-11.0)
[2022-08-06 06:27] LABS: ALBUMIN 3.3 g/dL (3.4-5.0); BILIRUBIN,DIRECT 0.2 mg/dL (0.0-0.2); BILIRUBIN,TOTAL 0.5 mg/dL (0.2-1.0); CALCIUM, SERUM 9.8 mg/dL (8.5-10.1); CREATININE 0.9 mg/dL (0.6-1.3); MAGNESIUM 2.3 mg/dL (1.8-2.4); PHOSPHORUS 5.2 mg/dL (2.5-4.9); POTASSIUM 3.6 mmol/L (3.5-5.1); TOTAL PROTEIN, SERUM 7.2 g/dL (6.4-8.2)
--- NOTE | 2022-08-06 07:50 | NUR ---
MS RN NOTES: PT IS AWAKE IN BED , A/O X4, ABLE TO MAKE NEEDS KNOWN, A/OX4 SOLOMON ISLANDER SPEAKING WITH SOME CZECH. ON ROOM AIR WITH NO S/S OF SOB, BREATHING EVEN AND UNLABORED. PT IS ON NPO STATUS REPORTS . IV ACCESS AT R AC INTACT , RUNNING D5 1/2 NS @75ML/HR. KEPT PT COMFORTABLE. SAFETY MEASURES IN PLACE, TABLE, CALL LIGHT WITHIN EASY REACH,WILL CONT TO MONITOR
[2022-08-06] MEDS: PANTOPRAZOLE 40 MG VIAL IV SCH (08:31)
--- NOTE | 2022-08-06 09:34 | NUR ---
MS RN NOTE AMBULATED TO BR, ABLE TO URINATE WELL , C\O ABDOMINAL PAIN ,MORPHINE 2 MG IVP GIVEN, BP109/70 SATURATION 99% NEW HL IN LT HAND AKHIL 22 INSERTED WITH GOOD BLOOD RETURN
[2022-08-06 10:03] VITALS: BP 109/70
--- NOTE | 2022-08-06 10:42 | NUR ---
MS RN NOTE CONSENT FOR HIDA SCAN SIGNED BY PATIENT
--- NOTE | 2022-08-06 12:06 | NUR ---
MS RN NOTE DR LOYOLA AT BEDSIDE ORDERED CLEAR LIQUID DIET AND NPO AFTER MID NIGHT ,AWARE THAT HIDA SCAN WILL BE DONE TOMORROW
[2022-08-06] MEDS ORDERED: LORAZEPAM 1 MG TABLET PO PRN (13:00)
[2022-08-06] MEDS ORDERED: POTASSIUM CHLORIDE 20 MEQ TAB.PRT.SR PO ONE (13:00)
[2022-08-06] MEDS: MORPHINE SULFATE INJ 4 MG/ML DISP.SYRIN IV PRN ×3 (13:21→21:43)
--- NOTE | 2022-08-06 13:40 | NUR ---
MS RN NOTE DR GALAVIZ SURGEON AT BEDSIDE, SPOKE WITH PATIENT ,ORDERED CBC BMP,PT\PTT INR ,K DUR 40 PO TIME ONE ALSO CHANGE ORDER OF MORPHINE TO 4 MG IVP Q4 HOUR AND ATIVAN 2MG PO Q12 PRN, CONSENT FOR SURGERY OBTAINED,
--- NOTE | 2022-08-06 13:45 | NUR ---
MS RN NOTE MORPHINE 4MG IVP GIVEN ORDERED BP 132/78 SATURATION 93% WILL MONITOR
[2022-08-06] MEDS: IV D5/0.45 NACL 1,000 ML IV PRN (15:58)
[2022-08-06 16:00] VITALS: BP 112/61
--- NOTE | 2022-08-06 17:01 | NUR ---
ms rn note per dr deanna holland to cancel hida scan
[2022-08-06] MEDS: ONDANSETRON HCL/PF 4 MG/2 ML VIAL IVP PRN (17:37)
--- NOTE | 2022-08-06 17:55 | NUR ---
television news anchor note c\o pain and nausea, morphine 4 mg ivp and Zofran ivp given as ordered , bp 112/78 saturation 98%
--- NOTE | 2022-08-06 18:36 | NUR ---
ms rn note patient in bed , all needs attended family at bedside, lt hand hl intact and flushed well, cont on ivf as ordered, bed in lowest and locked position , able to ambulate to br , keep clean dry, will have clear liquid diet , and npo after mid might ,for surgical procedure, will cont to monitor ,
--- NOTE | 2022-08-06 19:30 | NUR ---
MS RN OPENING NOTE RECEIVED PATIENT, SITTING IN BED, ALERT AND ORIENTED X4 WITH FRIENDS AT BEDSIDE. AFEBRILE AND NOT IN ANY FORM OF ACUTE DISTRESS. BREATHING EVEN AND NON LABORED. C/O MINIMAL ABDOMINAL PAIN BUT SAID THAT SHE'S IS ABLE TO TOLERATE IT. WITH IV ACCESS ON L HAND RUNNING WITH D5 1/2NS AT 75ML/HR. MAINTAINED ON CLEAR LIQUID DIET AND WILL KEEP ON NPO AFTER MIDNIGHT. SAFETY MEASURES IN PLACE. KEPT BED IN LOCKED AND IN LOW POSITION. SIDE RAILS UP X2. ADVISED TO USE THE CALL LIGHT WHEN IN NEED OF ASSISTANCE.
[2022-08-06 20:00] VITALS: BP 139/82
[2022-08-07] MEDS: ZOSYN IVPB 3.375 G in IV D5W 50ml IV SCH ×4 (01:15→20:25)
[2022-08-07] MEDS: MORPHINE SULFATE INJ 4 MG/ML DISP.SYRIN IV PRN ×3 (02:06→20:19)
[2022-08-07 04:00] VITALS: BP 104/64
[2022-08-07] MEDS: IV D5/0.45 NACL 1,000 ML IV PRN (06:27)
--- NOTE | 2022-08-07 06:30 | NUR ---
MS RN CLOSING NOTE PATIENT IN BED, ASLEEP BUT EASY TO AROUSE AND RESPONSIVE. ALERT AND ORIENTED X4. ABLE TO COMMUNICATE NEEDS WITH THE STAFFS. AFEBRILE AND NOT IN ANY FORM OF ACUTE DISTRESS. BREATHING EVEN AND NON LABORED. WITH IV ACCESS ON L HAND RUNNING WITH D5 1/2NS AT 75ML/HR. MEDICATED ORDERED. CONTINUOUS IN IV ATB, MONITORED FOR ANY ADVERSE REACTION. MAINTAINED ON NPO THAT STARTED SINCE MIDNIGHT FOR SCHEDULED SURGERY AT 1000. SAFETY MEASURES IN PLACE. KEPT BED IN LOCKED AND IN LOW POSITION. SIDE RAILS UP X2. ADVISED TO USE THE CALL LIGHT WHEN IN NEED OF ASSISTANCE. ALL NURSING NEEDS ATTENDED. ENDORSED TO INCOMING SHIFT FOR CONTINUITY OF CARE.
--- NOTE | 2022-08-07 07:15 | NUR ---
RN OPENING NOTE PATIENT IS IN BED, AWAKE, ALERT AND ORIENTED X4. ABLE TO VERBALIZE NEEDS. AFEBRILE AND NOT IN ANY FORM OF ACUTE DISTRESS. BREATHING EVEN AND UNLABORED. IV ACCESS ON L HAND D5 1/2NS AT 75ML/HR RUNNING. PT IS NPO SINCE MIDNIGHT FOR SCHEDULED CHOLECYSTECTOMY, SURGERY AND ANESTHESIA CONSENTS SIGNED AND IN CHART. URINE SAMPLE COLLECTED FOR TEST, ORDERED. SAFETY MEASURES IN PLACE. BED IS LOCKED AND IN LOW POSITION. SIDE RAILS UP X2.
[2022-08-07] MEDS ORDERED: BUPIVACAINE MPF 0.5% W/EPI INJ 30 ML VIAL ONE (07:36)
[2022-08-07] MEDS ORDERED: LIDOCAINE HCL/MPF 1% 30 ML VIAL IJ ONE (07:36)
[2022-08-07 07:38] LABS: BASOPHILS % (AUTO) 0.5 % (0.0-2.0); EOSINOPHILS % (AUTO) 1.6 % (0.0-6.0); HEMATOCRIT 42 % (33-45); HEMOGLOBIN 14.2 g/dL (11.5-14.8); LYMPHOCYTES # (AUTO) 1.3 K/uL (0.8-4.8); LYMPHOCYTES % (AUTO) 28.4 % (20.0-44.0); MEAN CORPUSCULAR HGB CONC 34 g/dl (31.0-36.0); MEAN CORPUSCULAR VOLUME 86 fL (82-100); MONOCYTES # (AUTO) 0.5 K/uL (0.1-1.30); MONOCYTES % (AUTO) 9.8 % (2.0-12.0); NEUTROPHILS # (AUTO) 2.8 K/uL (1.8-8.9); NEUTROPHILS % (AUTO) 59.7 % (43.0-81.0); PLATELET COUNT (AUTO) 368 K/uL (150-450); RED BLOOD CELL COUNT(AUTO) 4.89 MIL/uL (4.0-5.2); WHITE BLOOD COUNT (AUTO) 4.7 K/uL (4.3-11.0)
[2022-08-07 08:02] LABS: ALBUMIN 3.4 g/dL (3.4-5.0); BILIRUBIN,DIRECT 0.2 mg/dL (0.0-0.2); BILIRUBIN,TOTAL 0.5 mg/dL (0.2-1.0); CALCIUM, SERUM 9.5 mg/dL (8.5-10.1); CREATININE 0.8 mg/dL (0.6-1.3); MAGNESIUM 2.2 mg/dL (1.8-2.4); PHOSPHORUS 4.6 mg/dL (2.5-4.9); POTASSIUM 3.6 mmol/L (3.5-5.1); TOTAL PROTEIN, SERUM 7.4 g/dL (6.4-8.2)
[2022-08-07] MEDS ORDERED: GLYCOPYRROLATE 0.2 MG/ML VIAL ONE (08:09)
[2022-08-07] MEDS ORDERED: MIDAZOLAM HCL 2 MG/2ML VIAL ONE (08:10)
[2022-08-07] MEDS ORDERED: ROCURONIUM BROMIDE 50 MG/5 ML ONE (08:10)
[2022-08-07] MEDS ORDERED: FENTANYL PF 250MCG/5ML AMPUL ONE (08:10)
[2022-08-07] MEDS: PANTOPRAZOLE 40 MG VIAL IV SCH (08:27)
--- NOTE | 2022-08-07 09:39 | NUR ---
PATIENT TAKEN TO THE SURGERY DEPARTMENT, CONDITION STABLE, VITAL SIGNS: BP 116/72; HR 66; TEMP 98.1; O2 SAT ON RA 96%.
[2022-08-07] MEDS ORDERED: PHYTONADIONE INJ 10 MG/1 ML AMPUL ONE (11:10)
[2022-08-07] MEDS ORDERED: BACITRACIN ZINC OINT PACKET 1 EA PACKET TP ONE (11:12)
[2022-08-07] MEDS ORDERED: BACITRACIN ZINC OINT (15 GM) 15 GM TUBE TP ONE (11:13)
[2022-08-07] MEDS ORDERED: HYDROMORPHONE 1 MG/1 ML DISP.SYRIN ONE (11:40)
[2022-08-07] MEDS ORDERED: ONDANSETRON HCL/PF 4 MG/2 ML VIAL ONE (12:17)
[2022-08-07 12:20] VITALS: BP 113/70
--- NOTE | 2022-08-07 12:20 | NUR ---
GOT PATIENT BACK FROM SURGERY, AFTER LAPAROSCOPIC CHOLECYSTECTOMY. PT IS AWAKE, ABLE TO VERBALIZE NEEDS. DRESSING ON THE ABDOMEN ASSESSED, CLEAN AND INTACT. VITAL SIGNS: B/P113/70; HR69; RESP22; O2 SAT VIA RA98%.
[2022-08-07] MEDS: CELECOXIB 100 MG CAPSULE PO SCH (13:07)
[2022-08-07] MEDS: ACETAMINOPHEN 325 MG TABLET PO SCH ×2 (13:07→22:44)
[2022-08-07] MEDS: GABAPENTIN 300 MG CAPSULE PO SCH ×2 (13:07→22:43)
--- NOTE | 2022-08-07 13:41 | NUR ---
PATIENT ON CLEAR DIET UNTIL DINNER, HAS APPLE JUICE, WILL START SOFT DIET FROM 1700.
--- NOTE | 2022-08-07 15:35 | NUR ---
RN NOTE PATIENT C/O SEVERE ABDOMINAL PAIN 9 OUT OF 10 MORPHINE 4MG IVP GIVEN ORDERED PRN, BP 116/72 SATURATION 96% WILL MONITOR
--- NOTE | 2022-08-07 20:14 | NUR ---
RN CLOSING NOTE PATIENT IN BED, ASLEEP BUT EASY TO AROUSE AND RESPONSIVE. ALERT AND ORIENTED X4. ABLE TO COMMUNICATE NEEDS WITH THE STAFF. AFEBRILE AND NOT IN ANY FORM OF ACUTE DISTRESS. BREATHING EVEN AND NON LABORED. WITH IV ACCESS ON L HAND RUNNING WITH D5 1/2NS AT 75ML/HR. MEDICATED ORDERED. SAFETY MEASURES IN PLACE. KEPT BED IN LOCKED AND IN LOW POSITION. SIDE RAILS UP X2. ADVISED TO USE THE CALL LIGHT WHEN IN NEED OF ASSISTANCE. ALL NURSING NEEDS ATTENDED. ENDORSED TO INCOMING SHIFT FOR CONTINUITY OF CARE.
[2022-08-07 23:59] VITALS: BP 126/77
[2022-08-08] MEDS: ZOSYN IVPB 3.375 G in IV D5W 50ml IV SCH ×4 (01:11→19:58)
[2022-08-08] MEDS: MORPHINE SULFATE INJ 4 MG/ML DISP.SYRIN IV PRN ×3 (01:12→09:50)
[2022-08-08] MEDS: HYDROCODONE/APAP 5/325MG TABLET PO PRN ×2 (02:49→18:31)
[2022-08-08] MEDS: CELECOXIB 100 MG CAPSULE PO SCH ×2 (02:51→13:48)
[2022-08-08 05:51] VITALS: BP 115/72
[2022-08-08] MEDS: GABAPENTIN 300 MG CAPSULE PO SCH ×3 (06:16→22:21)
[2022-08-08] MEDS: ACETAMINOPHEN 325 MG TABLET PO SCH ×3 (06:17→22:21)
[2022-08-08 07:28] LABS: BASOPHILS % (AUTO) 0.2 % (0.0-2.0); EOSINOPHILS % (AUTO) 0.2 % (0.0-6.0); HEMATOCRIT 43 % (33-45); HEMOGLOBIN 13.9 g/dL (11.5-14.8); LYMPHOCYTES # (AUTO) 1.4 K/uL (0.8-4.8); LYMPHOCYTES % (AUTO) 18.8 % (20.0-44.0); MEAN CORPUSCULAR HGB CONC 33 g/dl (31.0-36.0); MEAN CORPUSCULAR VOLUME 87 fL (82-100); MONOCYTES # (AUTO) 0.6 K/uL (0.1-1.30); MONOCYTES % (AUTO) 8.1 % (2.0-12.0); NEUTROPHILS # (AUTO) 5.6 K/uL (1.8-8.9); NEUTROPHILS % (AUTO) 72.7 % (43.0-81.0); PLATELET COUNT (AUTO) 338 K/uL (150-450); RED BLOOD CELL COUNT(AUTO) 4.88 MIL/uL (4.0-5.2); WHITE BLOOD COUNT (AUTO) 7.7 K/uL (4.3-11.0)
[2022-08-08 07:29] LABS: CALCIUM, SERUM 9.3 mg/dL (8.5-10.1); CREATININE 0.8 mg/dL (0.6-1.3); MAGNESIUM 2.3 mg/dL (1.8-2.4); PHOSPHORUS 3.4 mg/dL (2.5-4.9); POTASSIUM 3.3 mmol/L (3.5-5.1)
[2022-08-08 07:35] LABS: BILIRUBIN,DIRECT 0.2 mg/dL (0.0-0.2); BILIRUBIN,TOTAL 0.5 mg/dL (0.2-1.0)
[2022-08-08 08:00] VITALS: BP 129/94
[2022-08-08] MEDS ORDERED: POTASSIUM CHLORIDE 20 MEQ TAB.PRT.SR PO SCH (11:30)
[2022-08-08 12:00] VITALS: BP 129/94
--- NOTE | 2022-08-08 12:00 | NUR ---
[id number] not available yet to administer. RX will dispense
[2022-08-08] MEDS ORDERED: MAGNESIUM HYDROXIDE 30 ML UDC PO ONE (12:30)
[2022-08-08] MEDS ORDERED: BISACODYL SUPP (10 MG) 10 MG/SUPP.RECT SUPP.RECT RC PRN (14:30)
[2022-08-08 16:28] VITALS: BP 102/67
[2022-08-08] MEDS: ONDANSETRON HCL/PF 4 MG/2 ML VIAL IVP PRN (18:17)
--- NOTE | 2022-08-08 19:42 | NUR ---
MS RN OPENING NOTE RECEIVED PT AWAKE IN BED. A/O X4, EQUATORIAL GUINEAN SPEAKING, AND ABLE TO MAKE NEEDS KNOWN. PT STABLE ON ROOM AIR. NO SOB OR S/S OF RESPIRATORY DISTRESS. BREATHING EVEN AND UNLABORED. IV ACCESS L HAND, INTACT AND PATENT, RUNNING D5 1/2 NS @ 75 ML/HR. SAFETY PRECAUTIONS IN PLACE. BED IN LOWEST LOCKED POSITION, HOB ELEVATED, SIDE RAILS UP X2, AND CALL LIGHT AND TABLE WITHIN REACH. ALL NEEDS MET AT THIS TIME.
[2022-08-08 20:00] VITALS: BP 120/69
[2022-08-08] MEDS: IV D5/0.45 NACL 1,000 ML IV PRN (22:22)
[2022-08-09] MEDS: ZOSYN IVPB 3.375 G in IV D5W 50ml IV SCH ×2 (01:31→07:37)
[2022-08-09] MEDS: CELECOXIB 100 MG CAPSULE PO SCH (01:32)
[2022-08-09] MEDS: HYDROCODONE/APAP 5/325MG TABLET PO PRN (01:52)
--- NOTE | 2022-08-09 01:53 | NUR ---
RN NOTE PT COMPLAINED OF PAIN 5/10 OF L ABDOMEN. ADMINISTERED NORCO 5-325 MG FOR MODERATE PAIN ORDERED. MADE COMFORTABLE IN BED. ALL NEEDS MET AT THIS TIME.
[2022-08-09 04:00] VITALS: BP 114/69
[2022-08-09] MEDS: GABAPENTIN 300 MG CAPSULE PO SCH (06:12)
[2022-08-09] MEDS: ACETAMINOPHEN 325 MG TABLET PO SCH (06:13)
--- NOTE | 2022-08-09 06:52 | NUR ---
MS RN CLOSING NOTE PT AWAKE IN BED. A/O X4, SURINAMESE SPEAKING, AND ABLE TO MAKE NEEDS KNOWN. PT STABLE ON ROOM AIR. NO SOB OR S/S OF RESPIRATORY DISTRESS. BREATHING EVEN AND UNLABORED. IV ACCESS L HAND, INTACT AND PATENT, RUNNING D5 1/2 NS @ 75 ML/HR. ALL DUE MEDS GIVEN ORDERED. SAFETY PRECAUTIONS IN PLACE AT ALL TIMES. BED IN LOWEST LOCKED POSITION, HOB ELEVATED, SIDE RAILS UP X2, AND CALL LIGHT AND TABLE WITHIN REACH. ALL NEEDS MET AT THIS TIME AND WILL ENDORSE TO ONCOMING NURSE FOR MEGAN.
[2022-08-09 07:20] LABS: BASOPHILS % (AUTO) 0.4 % (0.0-2.0); EOSINOPHILS % (AUTO) 0.9 % (0.0-6.0); HEMATOCRIT 42 % (33-45); HEMOGLOBIN 13.7 g/dL (11.5-14.8); LYMPHOCYTES # (AUTO) 1.3 K/uL (0.8-4.8); LYMPHOCYTES % (AUTO) 21.4 % (20.0-44.0); MEAN CORPUSCULAR HGB CONC 33 g/dl (31.0-36.0); MEAN CORPUSCULAR VOLUME 88 fL (82-100); MONOCYTES # (AUTO) 0.4 K/uL (0.1-1.30); MONOCYTES % (AUTO) 6.1 % (2.0-12.0); NEUTROPHILS # (AUTO) 4.2 K/uL (1.8-8.9); NEUTROPHILS % (AUTO) 71.2 % (43.0-81.0); PLATELET COUNT (AUTO) 350 K/uL (150-450); WHITE BLOOD COUNT (AUTO) 5.9 K/uL (4.3-11.0)
--- NOTE | 2022-08-09 07:30 | NUR ---
OPENING NOTE RECEIVED PT AWAKE IN BED. A/O X4, AMHARIC SPEAKING, AND ABLE TO MAKE NEEDS KNOWN. PT STABLE ON ROOM AIR. NO SOB OR S/S OF RESPIRATORY DISTRESS. BREATHING EVEN AND UNLABORED. IV ACCESS L HAND, INTACT AND PATENT, RUNNING D5 1/2 NS @ 75 ML/HR. SAFETY PRECAUTIONS IN PLACE. BED IN LOWEST LOCKED POSITION, HOB ELEVATED, SIDE RAILS UP X2, AND CALL LIGHT AND TABLE WITHIN REACH. ALL NEEDS MET AT THIS TIME.
[2022-08-09] MEDS: ONDANSETRON HCL/PF 4 MG/2 ML VIAL IVP PRN (07:49)
[2022-08-09 07:53] LABS: CALCIUM, SERUM 9.1 mg/dL (8.5-10.1); CREATININE 0.8 mg/dL (0.6-1.3); POTASSIUM 3.9 mmol/L (3.5-5.1)
[2022-08-09] MEDS ORDERED: PANTOPRAZOLE 40 MG TABLET.DR PO SCH (09:00)
[2022-08-09] MEDS ORDERED: GABA300C PO (10:01)
[2022-08-09] MEDS ORDERED: AMOX-430 PO (10:01)
[2022-08-09] MEDS ORDERED: ACET325T53 PO (10:01)
[2022-08-09] MEDS ORDERED: PANT40TA49 PO (10:01)
[2022-08-09] MEDS ORDERED: Hydrocodone/Apap 5/325MG PO (10:01)
[2022-08-09] MEDS ORDERED: CELE100C PO (10:01)
--- NOTE | 2022-08-09 10:14 | NUR ---
RECONFIRMING WITH DR BERNAL REGARDING DC ORDER, ADDRESSED TO HER PATIENTS CONCERN, C/O EPIGASTIRC PAIN, NO BOWEL MOVEMENT FOR THE LAST SIX DAYS AND NAUSEA.
[2022-08-09] MEDS ORDERED: POLYETHYLENE GLYCOL 3350 17 GM POWD.PACK PO ONE (11:00)
--- NOTE | 2022-08-09 11:09 | NUR ---
INFORMED DR GALAVIZ (SURGEON) THAT PT IS BEING DC TODAY AND WHEN THE PT CAN FOLLOW UP WITH THE
--- NOTE | 2022-08-09 11:35 | NUR ---
PATIENT HAD A BOWEL MOVEMENT.
== END 2022-08-09 12:50 | disposition home or self-care (01) | DRG 263 ==
LOC: ER 09:59 → MEDSG1 13:06
PROVIDERS: ADMIT Student in an Organized Health Care Education/Training Program; ATTEND Nurse Practitioner Acute Care
PROC: 0FT44ZZ Resection of Gallbladder, Percutaneous Endoscopic Approach (ICD-10-PCS; principal; 2022-08-07)
DX: K80.12 Calculus of gallbladder with acute and chronic cholecystitis without obstruction (principal); K85.10 Biliary acute pancreatitis without necrosis or infection; E44.1 Mild protein-calorie malnutrition; E87.6 Hypokalemia; K82.1 Hydrops of gallbladder; Z20.822 Contact with and (suspected) exposure to COVID-19; R74.01 Elevation of levels of liver transaminase levels; Z87.19 Personal history of other diseases of the digestive system; Z98.890 Other specified postprocedural states; Z79.899 Other long term (current) drug therapy
CPT/HCPCS: 36415; 76705-TC; 80048-TC; 80076-TC; 82962-TC; 83690-TC; 83735-TC; 84100-TC; 84703-TC; 85025-TC; 85610-TC; 85730-TC; 87040-TC; 87081-TC; A4223; C9113; C9803; G0378; J0330; J0690; J1100; J1170; J2250; J2270; J2405; J2543; J2704; J3010; J3430; J3480; J3490; J7030; J7050; J7060; J7070